=== PATIENT | female | born 1975 | race Caucasian/White ===

== ENCOUNTER 2016-03-28 10:32 | Emergency (ER) | payer BC, OTHER ==
[2016-03-28 10:59] VITALS: BP 97/52
[2016-03-28] MEDS ORDERED: NORMAL SALINE 1,000 ML IV ONE (13:04)
[2016-03-28] MEDS ORDERED: ALBUTEROL SULFATE/IPRATROPIUM 3 ML NEBU IH ONE ×4 (13:04→15:01)
--- NOTE | 2016-03-28 13:04 | ERNOTE ---
Date of Service: 03/28/16 Time Seen by Provider: 03/28/16 12:56 Stated Complaint: UPPER [email or web address] Presenting Symptoms:: cough Source: patient, family Exam Limitations: no limitations Immunizations: IMMUNIZATION HX Immunizations Up to Date Yes History of Influenza Vaccine No Hx Pneumococcal Vaccination No Allergies/Adverse Reactions: Allergies No Known Allergies Allergy (Verified 03/28/16 11:01) Home Medications: HOME MEDICATIONS ALPRAZolam [Xanax] 1 mg PO TID PRN 01/02/14 [Last Taken 08/25/14] Sumatriptan Succinate [Imitrex] 100 mg PO Q2H PRN 01/02/14 [Last Taken Unknown] Metoprolol Succinate [Toprol Xl] 150 mg PO DAILY #30 08/26/14 [Last Taken 05/01 06:45 150 mg] Albuterol Sulfate [Albuterol Sulfate 0.63 MG/3ML] 0.63 mg IH BID 14 Days [Last Taken Unknown] Chantix 03/24/16 [Last Taken Unknown] Levothyroxine Sodium 03/24/16 [Last Taken Unknown] Albuterol Sulfate/Ipratropium [Duoneb 2.5-0.5MG/3ML Soln] 3 ml IH QID #120 vial 03/28/16 [Last Taken Unknown] Levofloxacin [Levaquin] 750 mg PO DAILY #14 tab 03/28/16 [Last Taken Unknown] predniSONE [Prednisone] 1.5 tab PO BID #42 tab 03/28/16 [Last Taken Unknown] - History of Present Ilness Narrative: Bronchitis, with recent worsening. Has been on Cefuroxime. Still smoking, but not much for three days. No fever. SOB with walking. Timing: getting worse Severity: moderate Frequency/Possible Cause: Reports: occasional episodes Modifying Factors - Improves: Reports: rest Modifying Factors - Worsens: Reports: activity, coughing Associated Symptoms: Reports: wheezing, nasal congestion, nasal drainage Prior Treatment: Reports: recently seen, currently on antibiotics Review of Systems - Review of Systems Constitutional: Present: recent illness, malaise EYE: Present: no symptoms reported ENT: Present: nose pain, nose congestion Respiratory: Present: shortness of breath, cough, wheezing Cardiology: Present: no symptoms reported Gastrointestinal/Abdominal: Present: no symptoms reported Genitourinary: Present: no symptoms reported Musculoskeletal: Present: no symptoms reported Skin: Present: no symptoms reported Neurological: Present: no symptoms reported Endocrine: Present: no symptoms reported Hematologic/Lymphatic: Present: no symptoms reported Psych: Present: no symptoms reported All Other Systems: All systems neg except as marked - Patient's Past Medical History Patient History - Medical: Anxiety, Arthritis, Depression, Hypothyroidism, Migraines, Obesity, Rheumatoid Arthritis Patient History - Cardiac/Respiratory: Hypertension Patient History - Cancer: No Hx of Cancer Patient History - Surgical Procedures: , D & C, Hysterectomy, Tubal Ligation, Other - Family History Mother Family History - Medical: Diabetes Type 2 Family History - Cardiac/Respiratory: CHF, CVA/Stroke, Myocardial Infarction Father Family History - Cardiac/Respiratory: Myocardial Infarction - Social History Living Situations: home Smoking Status: Current some day smoker Have you smoked in the past 12 months: Yes Alcohol Use: none Drug Use: none, other Physical Exam - Physical Exam General Appearance: Present: wd/wn, alert, no apparent distress Eye Exam: Normal inspection: bilateral, PERRL: bilateral, EOMI: bilateral Ears, Nose, Throat: Present: normal ENT inspection, hearing grossly normal, nasal congestion, sinus pain/drainage, normal pharynx Neck: Present: normal inspection, nontender Respiratory: Present: no respiratory distress, decreased breath sounds Cardiovascular/Chest: Present: regular rate, rhythm, no murmur Gastrointestinal/Abdominal: Present: normal bowel sounds, nontender, nondistended, soft, no organomegaly Back Exam: Present: normal inspection Extremity Exam: Present: pedal edema Neurological Exam: Present: alert, oriented, normal mood/affect Skin Exam: Present: normal color, warm/dry ED Progress - Results and Orders Patient's Lab Results:: I have reviewed the patient's lab results. - Vital Signs Patient's Vital Signs:: I have reviewed the patient's vital signs. Vital Signs: Vital Signs 03/28/16 10:52 Temperature 36.0 C L Pulse Rate 98 Respiratory 20 Rate Blood Pressure 97/52 O2 Sat by Pulse 92 Oximetry - X-Ray X-Ray #1 X-Ray: chest Interpretation: Interp. by il - Pneumonia - Progress/Reassessment Chief Complaint: Upper Respiratory Symptoms Departure - Departure Clinical Impression: COPD exacerbation Pneumonia Qualifiers: Pneumonia type: due to unspecified organism Laterality: bilateral Lung location : unspecified part of lung Qualified Code(s): J18.9 - Pneumonia, unspecified organism Disposition: Home self-care Condition: Good Instructions: Chronic Obstructive Pulmonary Disease Exacerbation, [id number] , Pneumonitis Additional Instructions: Keep your followup appt with Dr. Jaramillo. Call if you get worse. Prescriptions: Albuterol Sulfate/Ipratropium [Duoneb 2.5-0.5MG/3ML Soln] 3 ml IH QID #120 vial Levofloxacin [Levaquin] 750 mg PO DAILY #14 tab predniSONE [Prednisone] 1.5 tab PO BID #42 tab
[2016-03-28] MEDS ORDERED: LEVOFLOXACIN/D5W 750 MG/150 ML BAG IV ONE (13:10)
[2016-03-28 13:23] LABS: Hematocrit 37.3 % (37.0-47.0); Hemoglobin 11.6 gm/dL (12.5-16.0); Mean Cell Volume 87.6 fl (78-100); Mean Corpuscular Hemoglobin 27.2 pg (27-31); Mean Corpuscular Hgb Conc 31.1 g/dl (32-36); Mean Platelet Volume 8.6 fl (6.0-9.5); Neutrophil % 73.1 % (42-75.0); Platelet Count 332 K/mm3 (150-450); Red Blood Count 4.26 M/mm3 (4.2-5.4); Red Cell Distribution Width 15.9 % (11.5-14.0); White Blood Count 13.7 K/mm3 (4.0-10.5)
[2016-03-28 13:42] LABS: Albumin * 3.1 gm/dl (3.4-5.0); Anion Gap 13.8 mmol/L (6.8-13.8); BUN/Creatinine Ratio 14.7 (9.0-21.6); Bilirubin, Total 0.2 mg/dL (0.0-1.1); Ca. Corrected For Albumin 8.9 mg/dL (8.4-10.2); Calcium * 8.5 mg/dL (7.9-10.9); Carbon Dioxide 26.4 mmol/L (24-32.6); Potassium 4.2 mmol/L (3.4-4.6)
[2016-03-28] MEDS ORDERED: METHYLPREDNISOLONE SOD SUCC/PF 40 MG/ML VIAL IV ONE (14:45)
[2016-03-28] MEDS ORDERED: METHYLPREDNISOLONE SOD SUCC/PF 125 MG/2 ML VIAL ONE (15:01)
== END 2016-03-28 15:56 | disposition home or self-care (01) ==
LOC: ER 10:32
DX: J18.9 Pneumonia, unspecified organism (principal); J44.1 Chronic obstructive pulmonary disease with (acute) exacerbation; F17.210 Nicotine dependence, cigarettes, uncomplicated; Z90.710 Acquired absence of both cervix and uterus

== ENCOUNTER 2016-04-07 12:43 | Emergency (ER) | payer BC, OTHER ==
[2016-04-07 12:43] VITALS: BP 97/52
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
== END 2016-04-07 22:19 | disposition expired ==
LOC: ER 12:43
PROC: 5A12012 Performance of Cardiac Output, Single, Manual (ICD-10-PCS; principal; 2016-04-07)
DX: I46.9 Cardiac arrest, cause unspecified (principal); Z90.710 Acquired absence of both cervix and uterus